=== PATIENT | female | born 1990 | race Caucasian/White ===

== ENCOUNTER 2016-08-27 16:42 | Emergency (ER) | payer OTHER ==
[2016-08-27 17:18] VITALS: BP 112/75
[2016-08-27] MEDS ORDERED: Al Hydrox/Mg Hydrox/Simet LIQ* 30 ML UDC PO ONE (17:59)
[2016-08-27] MEDS ORDERED: Ondansetron ODT TAB* 4 MG PO ONE (18:00)
--- NOTE | 2016-08-27 18:04 | UC ---
Abdominal Pain Female HPI - HPI Summary HPI Summary: Patient has a hx of connective tissue disease, she has been taking ibuprofen, with her ulcer due to the pain from her fibromyalgia. now she is nauseous, has some reflux, and lef side pain. urinating and BMs are normal. - History of Current Complaint Chief Complaint: UCAbdominalPain Stated Complaint: NAUSEA Time Seen by Provider: 08/27/16 17:37 Hx Obtained From: Patient Hx Last Menstrual Period: 08/24/16 ?: No Onset/Duration: Sudden Onset, Lasting Days Timing: Constant Severity Initially: Mild Severity Currently: Moderate Location: Epigastric, Other - left bakc Radiates: No Character: Burning, Cramping Aggravating Factor(s): Food Alleviating Factor(s): Nothing Allergies/Adverse Reactions: Allergies Allergy/AdvReac Type Severity Reaction Status Date / Time No Known Allergies Allergy Verified 08/27/16 17:18 Home Medications: Home Medications Gabapentin CAP(*) [Neurontin 100 mg CAP(*)] 200 mg PO DAILY 08/27/16 [History Confirmed 08/27/16] Gabapentin TAB(NF) [Neurontin 600 mg TAB(NF)] 600 mg PO DAILY 08/27/16 [History Confirmed 08/27/16] Ibuprofen TAB* [Motrin TAB* 800 MG] 800 mg PO Q6H PRN 08/27/16 [History Confirmed 08/27/16] Methylphenidate ER TAB* [Concerta ER TAB*] 18 mg PO DAILY 08/27/16 [History Confirmed 08/27/16] Naproxen Sodium [Naproxen Sodium 220 mg] 220 mg PO Q4H PRN 08/27/16 [History Confirmed 08/27/16] Omeprazole [Prilosec] 20 mg PO DAILY 08/27/16 [History Confirmed 08/27/16] PMH/Surg Hx/FS Hx/Imm Hx Previously Healthy: Yes - Surgical History Surgical History: Yes Surgery Procedure, Year, and Place: WISDOM TEETH - Family History Known Family History: Negative: Cardiac Disease, Hypertension - Social History Alcohol Use: Rare Substance Use Type: None Smoking Status (MU): Current Every Day Smoker Type: Cigarettes Amount Used/How Often: 4 CIGS PER DAY Length of Time of Smoking/Using Tobacco: ON AND OFF FOR 6 YRS Have You Smoked in the Last Year: Yes - Immunization History Most Recent Influenza Vaccination: NEVER GETS Most Recent Tetanus Shot: UTD Review of Systems Constitutional: Negative Skin: Negative Eyes: Negative ENT: Negative Respiratory: Negative Cardiovascular: Negative Gastrointestinal: Abdominal Pain Genitourinary: Negative Motor: Negative Neurovascular: Negative Musculoskeletal: Arthralgia, Myalgia Neurological: Negative Psychological: Negative All Other Systems Reviewed And Are Negative: Yes Physical Exam Triage Information Reviewed: Yes Appearance: Well-Nourished, Ill-Appearing, Pain Distress Vital Signs: Initial Vital Signs Temp 98.2 F 08/27/16 17:11 Pulse 75 08/27/16 17:11 Resp 12 08/27/16 17:11 BP 112/75 08/27/16 17:11 Pulse Ox 100 08/27/16 17:11 Vital Signs Reviewed: Yes Eye Exam: Normal Eyes: Positive: Conjunctiva Clear ENT Exam: Normal ENT: Positive: Pharynx normal, Pharyngeal erythema, TMs normal Dental Exam: Normal Neck exam: Normal Neck: Positive: Supple, Nontender, No Lymphadenopathy Respiratory Exam: Normal Respiratory: Positive: Chest non-tender, Lungs clear, Normal breath sounds Cardiovascular Exam: Normal Cardiovascular: Positive: RRR, No Murmur, Pulses Normal Abdominal Exam: Normal Abdomen Description: Positive: Nontender, No Organomegaly, Soft Bowel Sounds: Positive: Present Musculoskeletal Exam: Normal Musculoskeletal: Positive: Strength Intact, ROM Intact, No Edema Neurological Exam: Normal Neurological: Positive: Alert, Muscle Tone Normal Psychological Exam: Normal Skin Exam: Normal Abd Pain Female Course/Dx - Course Course Of Treatment: hx obtained, exam performed, meds reviewed, maalox and zofran given to relief epigastric upset with good results, left side pain appears to be muscular, increases with twisting and turning of the trunk. patient is in agreement that if it does not resolve with rest she will report to ER for further evaluation. - Differential Dx/Diagnosis Differential Diagnosis: Constipation, Diverticulitis, Gall Bladder Disease, Peptic Ulcer Disease, Urinary Tract Infection, Other - gastritis Provider Diagnoses: gastritis. left flank pain Discharge - Discharge Plan Condition: Stable Disposition: HOME Patient Education Materials: Gastritis (ED) Additional Instructions: 1. stop your ibuprofen as it is irritating the stomach. 2. GO home rest and start the prednisone given by the Placement Assistant 3. If you have iny increase in pain or othere symtpoms start you need to follow up in the ER.
== END 2016-08-27 18:39 | disposition home or self-care (01) ==
LOC: UCCORT 16:42
DX: K29.70 Gastritis, unspecified, without bleeding (principal); R10.9 Unspecified abdominal pain; F17.210 Nicotine dependence, cigarettes, uncomplicated
CPT/HCPCS: 81003; 84702; 99212; A9270-GY; G0463

== ENCOUNTER 2017-07-28 18:26 | Emergency (ER) | payer OTHER ==
[2017-07-28 18:46] VITALS: BP 132/93
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
--- NOTE | 2017-07-28 19:26 | UC ---
Headache HPI - HPI Summary HPI Summary: 26 yo female present here with a 3-4 day history of headache gradual onset with worsening daily holocranial photophobia neck pain n/v no f/c NO RELIEF WITH OXY CODONE hx of migraines none x yrs has never had a BENITEZ like this she is 9 weeks she has LUPUS current flare on prednisone - History Of Current Complaint Chief Complaint: UCHeadache Stated Complaint: NECK PAIN, H/A, 9 WEEKS PREG. Time Seen by Provider: 07/28/17 18:52 Hx Obtained From: Patient Hx Last Menstrual Period: MAY 22 2017 Onset/Duration: Gradual Onset, Lasting Days Onset Of Symptoms: Gradual Initially Headache Was: "Worst Headache Ever" Currently Pain Is: Severe Pain Intensity: 10 Pain Scale Used: 0-10 Numeric Timing: Constant, Days Character: Throbbing Location of Headache: Diffuse Aggravating Factor(s): Position Change Allevating Factor(s): Nothing Associated Signs And Symptoms: Positive: Nausea, Vomiting, Neck Pain, Neck Stiffness - Allergies/Home Medications Allergies/Adverse Reactions: Allergies Allergy/AdvReac Type Severity Reaction Status Date / Time No Known Allergies Allergy Verified 07/28/17 18:30 Home Medications: Home Medications Aspirin/Acetaminophen/Caffeine [Excedrin Migraine Caplet] 2 each PO PRN [History] D Vitamin 07/28/17 [History] LORazepam [Ativan 0.5 MG TAB] 0.5 mg PO QID PRN 07/28/17 [History Confirmed 12/07] Magnesium [Magnesium Elemental] 30 mg PO 07/28/17 [History] oxyCODONE TAB* [Roxycodone TAB 5 mg*] 5 mg PO Q6H PRN 07/28/17 [History Confirmed 07/28/17] predniSONE TAB* [Deltasone TAB*] 5 mg PO DAILY 07/28/17 [History Confirmed 07/28] PMH/Surg Hx/FS Hx/Imm Hx Previously Healthy: Yes - LUPUS Neurological History: Migraine - Surgical History Surgical History: Yes Surgery Procedure, Year, and Place: WISDOM TEETH - Family History Known Family History: Positive: Other - gout Negative: Cardiac Disease, Hypertension - Social History Alcohol Use: None Substance Use Type: None Smoking Status (MU): Former Smoker Type: Cigarettes Amount Used/How Often: 4 CIGS PER DAY Length of Time of Smoking/Using Tobacco: ON AND OFF FOR 6 YRS Have You Smoked in the Last Year: Yes - Immunization History Most Recent Influenza Vaccination: NEVER GETS Most Recent Tetanus Shot: UTD Review of Systems Constitutional: Negative Skin: Negative Eyes: Photophobia ENT: Negative Respiratory: Negative Cardiovascular: Negative Gastrointestinal: Negative Genitourinary: Negative Motor: Negative Neurovascular: Negative Musculoskeletal: Negative Neurological: Negative Psychological: Negative Is Patient Immunocompromised?: No All Other Systems Reviewed And Are Negative: Yes Physical Exam Triage Information Reviewed: Yes Appearance: Well-Nourished, Pain Distress Vital Signs: Initial Vital Signs Temp 98.3 F 07/28/17 18:37 Pulse 107 07/28/17 18:37 Resp 18 07/28/17 18:37 BP 132/93 07/28/17 18:37 Pulse Ox 100 07/28/17 18:37 Vital Signs Reviewed: Yes Eyes: Positive: Conjunctiva Clear, Other: - perrl/eomi, FUNDI- benign ENT: Positive: Hearing grossly normal. Negative: Nasal congestion, Nasal drainage, Trismus, Muffled voice Neck: Positive: Supple, Nontender, No Lymphadenopathy Respiratory: Positive: Lungs clear, Normal breath sounds, No respiratory distress, No accessory muscle use Cardiovascular: Positive: RRR, No Murmur Musculoskeletal: Positive: Strength Intact, ROM Intact, No Edema Neurological: Positive: Alert, Other: - cn 2-12 intact, strenght and sensory intact, GCS 15/15 Psychological Exam: Normal Skin Exam: Normal Headache Course/Dx - Course Course Of Treatment: discussed with patient the need for her to be seen in an ER. Lupus and risk of vasculitis as well as need for imaging/?LP/and complex medical issues all point towards her needing a higher level of care. She elects to go to [facility]. I called the triage center to inform them of her arrival via POV - Differential Dx/Diagnosis Provider Diagnoses: Headache of uncertain cause Discharge - Sign-Out/Discharge Documenting (check all that apply): Discharge/Admit/Transfer - Discharge Plan Condition: Fair Disposition: TRANS HIGHER LVL OF CARE FAC Referrals: Krystyna Noriega NP [Nurse Practitioner] - Additional Instructions: to [facility] for evaluation - Billing Disposition and Condition Condition: FAIR Disposition: EMTALA
== END 2017-07-28 19:16 | disposition short-term general hospital (02) ==
LOC: UCCORT 18:26
DX: O26.891 Other specified pregnancy related conditions, first trimester (principal); R51 Headache; M32.9 Systemic lupus erythematosus, unspecified; Z3A.09 9 weeks gestation of pregnancy; Z87.891 Personal history of nicotine dependence
CPT/HCPCS: 99212; G0463